=== PATIENT | male | born 1975 | race Caucasian/White ===

== ENCOUNTER 2017-05-08 09:34 | Emergency (ER) | payer BC ==
[~2017-05-08] VITALS: Ht 180.3 cm; Wt 79.0 kg
[~2017-05-08 09:34] MED LIST: FLEXERIL10 MG PO; NAPROSYN500 MG PO
[2017-05-08 12:34] LABS: HEMATOCRIT 46.7 % (38.0-50.0); MCH 29.6 PG (29.0-34.0); MCHC 33.6 G/DL (30.0-36.0); MCV 88.1 FL (86-99); MEAN PLAT.VOLUME 11.6 uM^3 (9.0-12.4); PLATELET COUNT 151 K/uL (156-360); RBC DIS.WIDTH-CV 12.3 % (11.8-14.6); RBC DIS.WIDTH-SD 39.8 % (39-53); WHITE BLOOD COUNT 7.9 K/uL (4.1-10.2)
[2017-05-08 12:46] LABS: ADD MIUA? NO; BILIRUBIN NEGATIVE; BLOOD NEGATIVE; COLOR STRAW ((YELLOW)); GLUCOSE (STRIP) NEGATIVE; KETONES NEGATIVE; LEUKOCYTES NEGATIVE; NITRITE NEGATIVE; PROTEIN (STRIP) NEGATIVE; UROBILINOGEN 0.2 MG/DL (0.2-1.0)
[2017-05-08 12:59] LABS: CHLORIDE 104 mEq/L (99-109); POTASSIUM 4.6 mEq/L (3.7-5.4); SODIUM 140 mEq/L (136-147)
[2017-05-08 13:01] LABS: GLUCOSE 90 mg/dL (70-99)
[2017-05-08 13:03] LABS: ANION GAP 8 MEQ/L (2-14); TOTAL BILIRUBIN 0.7 mg/dL (0.0-1.0)
[2017-05-08 13:05] LABS: ALKALINE PHOSPHATASE 52 IU/L (3-129); GFR ESTIMATE (CALCULATED) > 59 mL/min/
[2017-05-08 13:06] LABS: UREA NITROGEN (BUN) 11 mg/dL (9-23)
[2017-05-08 14:47] VITALS: BP 132/73
== END 2017-05-08 15:12 | disposition home or self-care (01) ==
LOC: EME 09:34
PROVIDERS: Nurse Practitioner Family
DX: H93.11 Tinnitus, right ear (principal); R42 Dizziness and giddiness; R51 Headache
CPT/HCPCS: 70450; 80053; 81003; 84439; 84443; 85027; 93005; 99281; 99284